=== PATIENT | male | born 1985 | race Native Hawaiian/Other Pacific Islander ===

== ENCOUNTER 2019-02-24 16:15 | Emergency (ER) | payer SELFPAY ==
[~2019-02-24] VITALS: Ht 185.4 cm; Wt 181.8 kg
[~2019-02-24 16:15] MED LIST: ALBU8HFA IH
[2019-02-24] MEDS ORDERED: AMPICILLIN SODIUM/SULBACTAM NA 3 GM in SODIUM CHLORIDE 0.9% 100 ML IV ONE (16:30)
[2019-02-24] MEDS ORDERED: DEXAMETHASONE SOD PHOS 4 MG/ML 5 ML VIAL IVP ONE (16:30)
[2019-02-24] MEDS ORDERED: KETOROLAC TROMETHAMINE 30 MG/ML VIAL IVP ONE (16:30)
[2019-02-24] MEDS ORDERED: SODIUM CHLORIDE 0.9% 1,000 ML IV ONE (16:30)
[2019-02-24] MEDS ORDERED: IOVERSOL 350 MG/ML 100 ML VIAL ONE (16:31)
[2019-02-24] MEDS ORDERED: SODIUM CHLORIDE 0.9% 100 ML ONE (16:31)
[2019-02-24 16:41] LABS: BASOPHILS % (AUTO) 0.3 % (0.0-2.0); EOSINOPHILS % (AUTO) 0.5 % (1.0-6.0); HEMATOCRIT 48.6 % (41-53); HEMOGLOBIN 16.5 g/dL (13.5-17.5); LYMPHOCYTES # (AUTO) 1.9 K/uL (1.0-4.8); LYMPHOCYTES % (AUTO) 17.8 % (22.0-44.0); MEAN CORPUSCULAR HEMOGLOBIN 30.2 pg (26.0-34.0); MEAN CORPUSCULAR HGB CONC 33.9 G/dL (31.0-37.0); MEAN CORPUSCULAR VOLUME 89 fL (80-100); MONOCYTES # (AUTO) 0.6 K/uL (0.1-1.0); MONOCYTES % (AUTO) 5.8 % (2.0-9.0); NEUTROPHILS # (AUTO) 8.3 K/uL (1.8-7.7); NEUTROPHILS % (AUTO) 75.6 % (40.0-70.0); PLATELET COUNT (AUTO) 203 K/uL (150-450); RED BLOOD CELL COUNT(AUTO) 5.46 MIL/uL (4.50-5.90); RED CELL DISTRIBUTION WIDTH 13.4 % (11.5-14.5)
[2019-02-24 16:50] LABS: ANION GAP 11 mmol/L (8-16); CALCIUM, TOTAL 9.2 mg/dL (8.8-10.5); CARBON DIOXIDE 27 mmol/L (22-29); CHLORIDE 99 mmol/L (98-107); GLOMERULAR FILTR. RATE CALC > 60 mL/min (>60); GLUCOSE,RANDOM 150 mg/dL (70-110); POTASSIUM 3.3 mmol/L (3.5-5.1); SODIUM SERUM 137 mmol/L (136-145); UREA NITROGEN, BLOOD 10 mg/dL (7-18)
[2019-02-24 19:13] VITALS: BP 145/90
== END 2019-02-24 19:32 | disposition short-term general hospital (02) ==
LOC: EMS 16:16
DX: J36 Peritonsillar abscess (principal); J45.909 Unspecified asthma, uncomplicated; Z87.891 Personal history of nicotine dependence
CPT/HCPCS: 36415; 70491; 80048; 85025; 96365; 96375; 99285; J0295; J1100; J1885; J7030; J7050; Q9967

== ENCOUNTER 2025-05-04 13:47 | Emergency (ER) | payer MEDICAID ==
[~2025-05-04] VITALS: Ht 185.4 cm; Wt 159.1 kg
[~2025-05-04 13:47] MED LIST changes: +ALBU18HF12 IH; -ALBU8HFA IH
[2025-05-04 13:57] VITALS: TEMP 98.2
[2025-05-04] MEDS: LIDOCAINE 5% TRANSDERMAL PATCH TD ONE (15:00)
[2025-05-04] MEDS: KETOROLAC TROMETHAMINE 30 MG/ML VIAL IM ONE (15:00)
[2025-05-04 15:50] VITALS: BP 146/95; PULSE 70; RESP 18; O2SAT 98
[2025-05-04] MEDS: CYCLOBENZAPRINE HCL 10 MG TABLET PO ONE (16:02)
[2025-05-04] MEDS ORDERED: LIDO-57 TP (16:10)
[2025-05-04] MEDS ORDERED: CYCL-448 PO (16:10)
== END 2025-05-04 16:29 | disposition home or self-care (01) ==
LOC: EMS 13:47
DX: R10.A1 Flank pain, right side (principal); J45.909 Unspecified asthma, uncomplicated; Z87.891 Personal history of nicotine dependence; W19.XXXA Unspecified fall, initial encounter
CPT/HCPCS: 99284; 72100; 96372; J1885